=== PATIENT | female | born 1940 | race Caucasian/White ===

== ENCOUNTER 2021-08-01 01:14 | Emergency (ER) | payer MEDICARE ==
[2021-08-01] MEDS ORDERED: Sodium Chloride 0.9% 10 ML Syringe FLUSH PRN (01:17)
--- NOTE | 2021-08-01 01:21 | EDM.PDOC ---
ED HPI GENERAL MEDICAL PROBLEM - General Chief Complaint: Gastrointestinal Problem Stated Complaint: Dizziness and vomiting Time Seen by Provider: 08/01/21 01:15 Source of Information: Reports: Patient, EMS History Limitations: Reports: No Limitations - History of Present Illness INITIAL COMMENTS - FREE TEXT/NARRATIVE: Britany is an 81-year-old female presenting to the ED via [facility] from home for evaluation for evaluation of acute onset of dizziness, flulike symptoms, nausea and vomiting. Patient states her symptoms started yesterday morning and she states that she has vertigo-like symptoms with room spinning with her eyes open. She has not had any fever or chills. She has been very dry from the vomiting and has not really been able to eat or drink much today. In addition to the nausea and vomiting, the patient has also had a cough with some mild shortness of breath. - Related Data Allergies Allergy/AdvReac Type Severity Reaction Status Date / Time ciprofloxacin Allergy Cannot Verified 08/01/21 02:31 Remember lisinopril Allergy Cough Verified 08/01/21 02:31 metoprolol Allergy Nausea Verified 08/01/21 02:31 Home Meds: Home Meds Hum Insulin Nph/Reg Insulin Hm [Relion Humulin 70-30 Vial] 95 unit SUBCUT QPM 03/14/14 [History] Hum Insulin Nph/Reg Insulin Hm [Relion Humulin 70-30 Vial] 105 units SUBCUT QAM 03/14/14 [History] Levothyroxine 112 mcg PO DAILY 03/14/14 [History] Diltiazem HCl [Diltiazem 24Hr Cd] 180 mg PO DAILY 08/01/21 [History] Furosemide [Lasix] 40 mg PO DAILY 08/01/21 [History] ED ROS GENERAL - Review of Systems Review Of Systems: See Below Constitutional: Reports: Chills, Malaise, Weakness HEENT: Reports: Other (dry mucus membranes) Respiratory: Reports: Shortness of Breath, Cough Cardiovascular: Reports: No Symptoms Endocrine: Reports: No Symptoms GI/Abdominal: Reports: Nausea, Vomiting : Reports: No Symptoms Musculoskeletal: Reports: No Symptoms Skin: Reports: No Symptoms Neurological: Reports: Dizziness Psychiatric: Reports: Anxiety Hematologic/Lymphatic: Reports: No Symptoms Immunologic: Reports: No Symptoms ED EXAM, GENERAL - Physical Exam Exam: See Below Exam Limited By: No Limitations General Appearance: Alert, Anxious, Mild Distress Eye Exam: Bilateral Eye: EOMI, PERRL Nose: Normal Inspection Throat/Mouth: Normal Voice, No Airway Compromise, Other (Dry mucous membranes) Head: Atraumatic, Normocephalic Neck: Normal Inspection, Supple Respiratory/Chest: No Respiratory Distress, Lungs Clear, Normal Breath Sounds Cardiovascular: Normal Peripheral Pulses, Regular Rate, Rhythm, No Murmur Peripheral Pulses: 2+: Radial (L), Radial (R) GI/Abdominal: Normal Bowel Sounds, Soft, Non-Tender. No: Guarding, Rigid, Rebound Extremities: Normal Inspection Neurological: Alert, Oriented, Normal Cognition, No Motor/Sensory Deficits Psychiatric: Anxious (Anxious and winey) Skin Exam: Warm, Dry Lymphatic: No Adenopathy #1 Interpretation EKG Date: 08/01/21 Time: 01:18 Rhythm: NSR [place]: LAD-Left [place] Deviation P-Wave: Present QRS: RBBB ST-T: Other (Repolarization secondary to bundle branch block) QT: Prolonged Comparison: NA - No Prior EKG Course - Vital Signs Last Recorded V/S: Last Vital Signs Temp 36.5 C 08/01/21 01:32 Pulse 64 08/01/21 01:32 Resp 19 08/01/21 06:00 BP 155/62 H 08/01/21 06:00 Pulse Ox 92 L 08/01/21 06:00 - Orders/Labs/Meds Orders: Active Orders 24 hr Category Date Time Status Chest 1V Frontal [CR] Stat Exams 08/01/21 02:17 Taken Sodium Chloride 0.9% [Normal Saline] 1,000 ml Med 08/01/21 01:30 Active IV ASDIRECTED Sodium Chloride 0.9% [Saline Flush] Med 08/01/21 01:17 Active 10 ml FLUSH ASDIRECTED PRN Isolation [COMM] Stat Oth 08/01/21 01:18 Ordered Saline Lock Insert [OM.PC] Routine Oth 08/01/21 01:17 Ordered EKG 12 Lead [EK] Routine Ther 08/01/21 02:18 Ordered Medication Orders Sodium Chloride (Normal Saline) 1,000 mls @ 999 mls/hr IV ASDIRECTED JONO Last Admin: 08/01/21 02:00 Dose: 999 mls/hr Documented by: CRISTIAN Sodium Chloride (Sodium Chloride 0.9% 10 Ml Syringe) 10 ml FLUSH ASDIRECTED PRN PRN Reason: Keep Vein Open Last Admin: 08/01/21 02:00 Dose: 10 ml Documented by: CRISTIAN Labs: Laboratory Tests 08/01/21 08/01/21 08/01/21 Range/Units 01:25 01:25 01:25 WBC 5.6 (3.2-11.0) K/uL RBC 4.49 (3.77-5.24) M/uL Hgb 13.9 (11.2-15.5) Hct 42.4 (34.3-46.0) % MCV 94.4 (81.4-99.0) fL MCH 31.0 L (31.6-35.5) pg MCHC 32.8 (31.6-35.5) g/dL Plt Count 121 L (130-375) K/uL Immature Gran % (Auto) 0.2 (0.0-0.7) % Neut % (Auto) 79.0 H (36-66) % Lymph % (Auto) 7.8 L (24-44) % [place] % (Auto) 9.8 H (2-6) % Eos % (Auto) 2.8 (2-4) % Baso % (Auto) 0.4 (0-1) % Neut # (Auto) 4.44 (1.0-7.6) K/uL Lymph # (Auto) 0.44 L (0.8-3.3) K/uL [place] # (Auto) 0.55 (0.20-0.90) K/uL Eos # (Auto) 0.16 (0.00-0.40) K/uL Baso # (Auto) 0.02 (0.00-0.10) K/uL Immature Gran # (Auto) 0.01 (0.00-0.23) K/uL Sodium 142 (140-148) mmol/L Potassium 3.8 (3.6-5.2) mmol/L Chloride 104 (100-108) mmol/L Carbon Dioxide 28 (21-32) mmol/L Anion Gap 9.8 (5.0-14.0) mmol/L BUN 18 (7-18) mg/dL Creatinine 1.3 H (0.6-1.0) mg/dL Est Cr Clr Drug Dosing 29.31 mL/min Estimated GFR (MDRD) 39 L (>60) Glucose 62 L (74-106) mg/dL Lactic Acid 1.1 (0.4-2.0) mmol/L Calcium 8.8 (8.5-10.1) mg/dL Total Bilirubin 0.8 (0.2-1.0) mg/dL AST 77 H (15-37) U/L ALT 58 (12-78) U/L Alkaline Phosphatase 122 H (46-116) U/L C-Reactive Protein 1.68 H (0.0-0.3) mg/dL Total Protein 7.7 (6.4-8.2) g/dL Albumin 3.2 L (3.4-5.0) g/dL Globulin 4.5 H (2.3-3.5) g/dL Albumin/Globulin Ratio 0.7 L (1.2-2.2) Procalcitonin ng/mL Influenza Type A RNA (NEGATIVE) RSV RNA (INAAT) (NEGATIVE) Influenza Type B RNA (NEGATIVE) SARS-CoV-2 RNA (HEIDY) (NEGATIVE) 08/01/21 08/01/21 Range/Units 01:25 01:27 WBC (3.2-11.0) K/uL RBC (3.77-5.24) M/uL Hgb (11.2-15.5) Hct (34.3-46.0) % MCV (81.4-99.0) fL MCH (31.6-35.5) pg MCHC (31.6-35.5) g/dL Plt Count (130-375) K/uL Immature Gran % (Auto) (0.0-0.7) % Neut % (Auto) (36-66) % Lymph % (Auto) (24-44) % [place] % (Auto) (2-6) % Eos % (Auto) (2-4) % Baso % (Auto) (0-1) % Neut # (Auto) (1.0-7.6) K/uL Lymph # (Auto) (0.8-3.3) K/uL [place] # (Auto) (0.20-0.90) K/uL Eos # (Auto) (0.00-0.40) K/uL Baso # (Auto) (0.00-0.10) K/uL Immature Gran # (Auto) (0.00-0.23) K/uL Sodium (140-148) mmol/L Potassium (3.6-5.2) mmol/L Chloride (100-108) mmol/L Carbon Dioxide (21-32) mmol/L Anion Gap (5.0-14.0) mmol/L BUN (7-18) mg/dL Creatinine (0.6-1.0) mg/dL Est Cr Clr Drug Dosing mL/min Estimated GFR (MDRD) (>60) Glucose (74-106) mg/dL Lactic Acid (0.4-2.0) mmol/L Calcium (8.5-10.1) mg/dL Total Bilirubin (0.2-1.0) mg/dL AST (15-37) U/L ALT (12-78) U/L Alkaline Phosphatase (46-116) U/L C-Reactive Protein (0.0-0.3) mg/dL Total Protein (6.4-8.2) g/dL Albumin (3.4-5.0) g/dL Globulin (2.3-3.5) g/dL Albumin/Globulin Ratio (1.2-2.2) Procalcitonin 0.41 ng/mL Influenza Type A RNA Positive H (NEGATIVE) RSV RNA (INAAT) Negative (NEGATIVE) Influenza Type B RNA Negative (NEGATIVE) SARS-CoV-2 RNA (HEIDY) Positive H (NEGATIVE) Meds: Medications Generic Name Dose Route Start Last Admin Trade Name Freq PRN Reason Stop Dose Admin Sodium Chloride 1,000 mls @ 999 mls/hr 08/01/21 01:30 08/01/21 02:00 Normal Saline IV 999 mls/hr ASDIRECTED JONO Administration Sodium Chloride 10 ml 08/01/21 01:17 08/01/21 02:00 Sodium Chloride 0.9% 10 Ml Syringe FLUSH 10 ml ASDIRECTED PRN Administration Keep Vein Open - Radiology Interpretation Free Text/Narrative:: I reviewed the 1 view chest x-ray on Britany showing some scant groundglass opacities in the right base but no evidence for any considerable infiltrates. - Re-Assessments/Exams Free Text/Narrative Re-Assessment/Exam: 08/01/21 02:13 lab called to notify us that Britany is positive for influenza A and for COVID-19 which would certainly cover the reasons why she feels weak and dizzy as well as the nausea and vomiting. She does appear to be volume depleted so we will give her a liter of normal saline for rehydration. 08/01/21 02:50 I reviewed the labs showing a leukocyte count of 5.6, hemoglobin of 13.9, hematocrit of 42.4 and platelet count of 121,000. The comprehensive metabolic panel was relatively normal with a sodium of 142, potassium 3.8, chloride of 104, bicarbonate of 28, BUN of 18 with a creatinine 1.3 and a glucose of 62. Calcium is 8.8, AST is elevated at 77, ALT is 58 and alkaline phosphatase is 122. Venous lactic acid is normal at 1.1 but the C-reactive protein is mildly elevated at 1.68. The patient is positive for influenza and Covid as mentioned above. 08/01/21 04:29 it is felt that the nausea and vomiting are currently under control with Zofran and the patient is not requiring oxygen to maintain an SPO2 greater than 94% so it is unlikely that she needs hospitalization. We did contact the son to come take her home, however, he has not slept all night and does not feel safe retrieving her in the middle the night so his plan is to come between 7 and 9:00 in the morning at which point he will take her home. My plan is to put her on Zofran ODT 1 tablet every 8 hours as needed for nausea and vomiting. Should her condition worsen she should return to the ED for reevaluation. I will also give her a prescription for a small amount of lorazepam 0.5 mg tablets that she may take 1 every 8 hours as needed for the dizziness. Dispensing 10 tablets. Departure - Departure Time of Disposition: 08:00 Disposition: Home, Self-Care 01 Clinical Impression: COVID-19, Influenza A, Dizziness Nausea and vomiting Qualifiers: Vomiting type: unspecified Qualified Code(s): R11.2 - Nausea with vomiting, unspecified - Discharge Information Instructions: Nausea, Adult, Influenza, Adult, [id number], What You Should Know About COVID-19 to Protect Yourself and Others - [facility], 10 Things You Can Do to Manage Your COVID-19 Symptoms at Home - [facility] (02/06/2021), Dehydration, Elderly, [id number] Referrals: PCP,None [Ordering Only Provider] - Forms: ED Department Discharge Care Plan Goals: Your work-up today has shown that you have both influenza A and COVID-19. We will start you on Zofran which is an antinausea medicine to control your vomiting. Please drink frequent small amounts of fluids to remain hydrated. Continue to take Tylenol or ibuprofen for headache and body aches as well as fever. Currently your symptoms do not warrant you being hospitalized as you are not requiring oxygen, however, if your developing increasing shortness of breath, increased weakness, or unable to eat or drink please return for reevaluation. I have ordered the monoclonal antibody therapy for you which you will likely be contacted on Tuesday to receive. This may help lessen the severity of your COVID-19 illness. Continue to isolate from others as both of these illnesses are very contagious. Sepsis Event Note (ED) - Focused Exam Vital Signs: Vital Signs Temp Pulse Resp BP Pulse Ox 08/01/21 06:00 19 155/62 H 92 L 08/01/21 05:00 20 155/59 H 92 L 08/01/21 04:00 18 142/62 H 93 L 08/01/21 02:15 20 163/70 H 93 L 08/01/21 01:32 36.5 C 64 17 158/60 H 92 L 08/01/21 01:31 36.5 C 64 17 158/60 H 92 L - Problem List & Annotations (1) COVID-19 SNOMED Code(s): 229034482 Code(s): U07.1 - COVID-19 Status: Acute Priority: High Current Visit: Yes (2) Dizziness SNOMED Code(s): 145002452, 338167869 Code(s): R42 - DIZZINESS AND GIDDINESS Status: Acute Priority: High Current Visit: Yes (3) Influenza A SNOMED Code(s): 414859315 Code(s): J10.1 - FLU DUE TO OTH IDENT INFLUENZA VIRUS W OTH RESP MANIFEST Status: Acute Priority: High Current Visit: Yes (4) Nausea and vomiting SNOMED Code(s): 93784673 Code(s): R11.2 - NAUSEA WITH VOMITING, UNSPECIFIED Status: Acute Priority: High Current Visit: Yes Qualifiers: Vomiting type: unspecified Qualified Code(s): R11.2 - Nausea with vomiting, unspecified - Problem List Review Problem List Initiated/Reviewed/Updated: Yes - My Orders Last 24 Hours: My Active Orders 08/01/21 01:17 Sodium Chloride 0.9% [Saline Flush] 10 ml FLUSH ASDIRECTED PRN Saline Lock Insert [OM.PC] Routine 08/01/21 01:18 Isolation [COMM] Stat 08/01/21 01:30 Sodium Chloride 0.9% [Normal Saline] 1,000 ml IV ASDIRECTED 08/01/21 02:17 Chest 1V Frontal [CR] Stat 08/01/21 02:18 EKG 12 Lead [EK] Routine - Assessment/Plan Last 24 Hours: My Active Orders 08/01/21 01:17 Sodium Chloride 0.9% [Saline Flush] 10 ml FLUSH ASDIRECTED PRN Saline Lock Insert [OM.PC] Routine 08/01/21 01:18 Isolation [COMM] Stat 08/01/21 01:30 Sodium Chloride 0.9% [Normal Saline] 1,000 ml IV ASDIRECTED 08/01/21 02:17 Chest 1V Frontal [CR] Stat 08/01/21 02:18 EKG 12 Lead [EK] Routine
[2021-08-01] MEDS ORDERED: Sodium Chloride 0.9% 1,000 ML IV SCH (01:30)
[2021-08-01 01:32] VITALS: PULSE 64
[2021-08-01 02:14] LABS: CORONAVIRUS COVID-19 NAA POSITIVE (NEGATIVE)
[2021-08-01 06:16] VITALS: BP 155/62
--- NOTE | 2021-08-03 09:38 | CR ---
CHEST: Portable 08/01/2021 at 2:33 AM CLINICAL HISTORY:Influenza positive, covid COMPARISON:None FINDINGS: Heart size and pulmonary vascularity are normal. There are atherosclerotic changes in the aorta.. There is mild prominence of the perihilar lung markings. Impression: Mild prominence of the perihilar lung markings. This can be seen with pneumonitis or bronchiolitis.
== END 2021-08-01 09:28 | disposition home or self-care (01) ==
LOC: JP.ED 01:14
DX: U07.1 COVID-19 (principal); J10.1 Influenza due to other identified influenza virus with other respiratory manifestations; R42 Dizziness and giddiness; R11.2 Nausea with vomiting, unspecified; Z88.1 Allergy status to other antibiotic agents; Z88.8 Allergy status to other drugs, medicaments and biological substances
CPT/HCPCS: 0241U; 36415; 71045; 80053; 83605; 84145; 85025; 86140; 93005; 99285; J7030